=== PATIENT | male | born 1990 | race Caucasian/White ===

== ENCOUNTER 2017-03-10 20:57 | Emergency (ER) | payer SELFPAY ==
[2017-03-12] MEDS ORDERED: SULF1TAB47 PO (10:21)
[2017-03-12] MEDS ORDERED: TRAM50TA94 PO (10:22)
== END 2017-03-11 00:17 | disposition left against medical advice (07) ==
LOC: ER 20:57
DX: Z53.21 Procedure and treatment not carried out due to patient leaving prior to being seen by health care provider (principal)

== ENCOUNTER 2017-03-11 00:57 | Inpatient (IN) | payer SELFPAY ==
[~2017-03-11] VITALS: Ht 170.2 cm; Wt 90.7 kg
[2017-03-11] MEDS ORDERED: HYDROCODONE/ACETAMINOPHEN 5/325MG TABLET PO ONE (04:15)
[2017-03-11 04:32] LABS: BASOPHILS % 0.2 % (0.0-2.0); EOSINOPHILS % 0.3 % (0.0-5.0); HEMATOCRIT. 42.5 % (42.0-52.0); HEMOGLOBIN. 14.5 g/dL (14.0-18.0); LYMPHOCYTES % 8.7 % (20.0-50.0); MEAN PLATELET VOLUME 8.7 fl (7.4-10.4); NEUTROPHILS % 83.8 % (40.0-76.0); PLATELET 312 x1000/uL (130-400); RED BLOOD CELL COUNT 4.38 mill/uL (4.7-6.1); RED CELL DISTRIBUTION WIDTH 13.4 % (11.6-14.6)
[2017-03-11] MEDS ORDERED: CEFTRIAXONE 1 G PREMIX 50 ML IV ONE (05:30)
[2017-03-11] MEDS ORDERED: MORPHINE SULFATE 10 MG/ML CPJ IV ONE (05:30)
[2017-03-11] MEDS ORDERED: VANCOMYCIN 1 G PREMIX 200 ML IV SCH (05:45)
[2017-03-11 06:09] LABS: CARBON DIOXIDE 29 mEq/L (21-32); CHLORIDE 104 mEq/L (98-107)
[2017-03-11] MEDS ORDERED: ONDANSETRON HCL 4MG/2ML VIAL IV PRN (07:00)
[2017-03-11] MEDS ORDERED: CLONIDINE 0.1MG TABLET PO PRN (07:00)
[2017-03-11] MEDS ORDERED: ACETAMINOPHEN 325MG TABLET PO PRN (07:00)
[2017-03-11] MEDS ORDERED: MORPHINE SULFATE 2 MG/ML CPJ (NOT FOR IM USE) IV PRN (07:00)
[2017-03-11] MEDS: AMLODIPINE 10MG TABLET PO SCH (09:00)
[2017-03-11 09:10] VITALS: BP 114/68
[2017-03-11 09:19] LABS: CLARITY URINE CLOUDY (CLEAR); COLOR URINE YELLOW (YELLOW); KETONES URINE NEGATIVE (NEGATIVE); LEUKOCYTE ESTERASE URINE NEGATIVE (NEGATIVE); NITRITE URINE NEGATIVE (NEGATIVE); OCCULT BLOOD URINE NEGATIVE (NEGATIVE); PROTEIN URINE NEGATIVE (NEGATIVE); SPECIFIC GRAVITY URINE 1.026 (1.005-1.030)
[2017-03-11 09:30] VITALS: BP 114/68
[2017-03-11] MEDS: HYDROCODONE/ACETAMINOPHEN 5/325MG TABLET PO PRN ×3 (09:50→20:06)
[2017-03-11] MEDS: ENOXAPARIN 30MG/0.3ML SYR SUBCUT SCH ×2 (11:29→20:06)
[2017-03-11 12:00] VITALS: BP 113/67
[2017-03-11] MEDS ORDERED: VANCOMYCIN 1,500 MG in SODIUM CHLORIDE 0.9% 250 ML IV SCH (12:00)
[2017-03-11] MEDS ORDERED: INFLUENZA VIRUS VACCINE 0.5ML SYR IM ONE (12:15)
[2017-03-11] MEDS: PIPERACILLIN/TAZ 3.375G PREMIX 50 ML IV SCH ×2 (12:25→17:41)
[2017-03-11 16:00] VITALS: BP 121/76
[2017-03-11 20:00] VITALS: BP 128/70
[2017-03-12] VITALS: BP 103/66
[2017-03-12] MEDS: VANCOMYCIN 1,250 MG in SODIUM CHLORIDE 0.9% 250 ML IV SCH ×3 (00:26→15:29)
[2017-03-12] MEDS: HYDROCODONE/ACETAMINOPHEN 5/325MG TABLET PO PRN ×2 (00:42→09:30)
[2017-03-12 04:00] VITALS: BP 109/55
[2017-03-12] MEDS: PIPERACILLIN/TAZ 3.375G PREMIX 50 ML IV SCH ×3 (05:52→19:28)
[2017-03-12 06:30] LABS: BASOPHILS % 0.4 % (0.0-2.0); EOSINOPHILS % 2.5 % (0.0-5.0); HEMATOCRIT. 44.4 % (42.0-52.0); HEMOGLOBIN. 15.4 g/dL (14.0-18.0); LYMPHOCYTES % 13.6 % (20.0-50.0); MEAN CORPUSCULAR HEMOGLOBIN 33.6 pg (28.0-32.0); MEAN CORPUSCULAR VOLUME 97.1 fL (80.0-94.0); MEAN PLATELET VOLUME 8.6 fl (7.4-10.4); MONOCYTES % 10.1 % (2.0-8.0); NEUTROPHILS % 73.4 % (40.0-76.0); PLATELET 351 x1000/uL (130-400); RED BLOOD CELL COUNT 4.58 mill/uL (4.7-6.1); RED CELL DISTRIBUTION WIDTH 13.8 % (11.6-14.6)
[2017-03-12 06:44] LABS: CHLORIDE 104 mEq/L (98-107)
[2017-03-12 06:58] LABS: CARBON DIOXIDE 25 mEq/L (21-32)
[2017-03-12 08:00] VITALS: BP 92/50
[2017-03-12] MEDS: AMLODIPINE 10MG TABLET PO SCH (09:00)
[2017-03-12] MEDS: ENOXAPARIN 30MG/0.3ML SYR SUBCUT SCH (09:00)
[2017-03-12] MEDS ORDERED: SULF1TAB47 PO (10:21)
[2017-03-12] MEDS ORDERED: TRAM50TA94 PO (10:22)
[2017-03-12 12:00] VITALS: BP 97/61
[2017-03-12 16:00] VITALS: BP 99/64
[2017-03-12 20:00] VITALS: BP 111/65
== END 2017-03-12 21:45 | disposition home or self-care (01) | DRG 383 ==
LOC: ER 01:14 → 6EST 06:16 → EDBEDREQTM 06:22 → EDBEDREQ 06:22 → SUPCPDRO 06:48 → ENRESERV 07:09
PROVIDERS: ADMIT Hospitalist; ATTEND Hospitalist
DX: L03.116 Cellulitis of left lower limb (principal); F17.200 Nicotine dependence, unspecified, uncomplicated; Z88.6 Allergy status to analgesic agent
CPT/HCPCS: 36415; 73590; 80053; 81001; 85025; 87040; 87070; 87077; 87205; 93970; 96365; 96367; 96375; 99285; J0696; J1650; J2270; J2543; J3370; J7040; J7050; J7060

== ENCOUNTER 2017-03-12 23:59 | Emergency (ER) | payer SELFPAY ==
[~2017-03-12] VITALS: Ht 167.6 cm; Wt 75.0 kg
[~2017-03-12 23:59] MED LIST: SULF1TAB47 PO; TRAM50TA94 PO
[2017-03-13 02:00] VITALS: BP 112/79
[2017-03-13 03:01] LABS: BASOPHILS % 0.5 % (0.0-2.0); EOSINOPHILS % 3.5 % (0.0-5.0); HEMATOCRIT. 42.1 % (42.0-52.0); HEMOGLOBIN. 14.5 g/dL (14.0-18.0); LYMPHOCYTES % 16.7 % (20.0-50.0); MEAN CORPUSCULAR HEMOGLOBIN 33.4 pg (28.0-32.0); MEAN CORPUSCULAR VOLUME 96.9 fL (80.0-94.0); MEAN PLATELET VOLUME 8.1 fl (7.4-10.4); MONOCYTES % 10.7 % (2.0-8.0); NEUTROPHILS % 68.6 % (40.0-76.0); PLATELET 366 x1000/uL (130-400); RED BLOOD CELL COUNT 4.35 mill/uL (4.7-6.1); RED CELL DISTRIBUTION WIDTH 13.8 % (11.6-14.6)
[2017-03-13 03:06] LABS: CARBON DIOXIDE 30 mEq/L (21-32); CHLORIDE 105 mEq/L (98-107)
[2017-03-13] MEDS ORDERED: BACITRACIN ZINC OINT UDPKT TOP ONE (03:45)
== END 2017-03-13 04:55 | disposition home or self-care (01) ==
LOC: ER 23:59
DX: L97.328 Non-pressure chronic ulcer of left ankle with other specified severity (principal); F17.200 Nicotine dependence, unspecified, uncomplicated; F12.10 Cannabis abuse, uncomplicated; Z88.6 Allergy status to analgesic agent; Z59.0 Homelessness
CPT/HCPCS: 36415; 80053; 83605; 85025; 99284